=== PATIENT | female | born 1990 | race Caucasian/White ===

== ENCOUNTER 2020-07-17 17:37 | Emergency (ER) | payer OTHER ==
[2020-07-17] MEDS ORDERED: GOLYTELY 40004000 ML PO (18:58)
[2020-07-17] MEDS ORDERED: FLEET ENEMA EX230 ML PR (18:58)
== END 2020-07-17 19:12 | disposition home or self-care (01) ==
LOC: ER1 17:37
DX: K59.00 Constipation, unspecified (principal)
CPT/HCPCS: 74018; 99283